=== PATIENT | female | born 1995 | race Caucasian/White ===

== ENCOUNTER 2017-05-10 19:33 | Emergency (ER) | payer SELFPAY, MEDICAID | END 2017-05-10 21:10 | disposition left against medical advice (07) | LOC: E/R 19:33 | DX: Z53.21 Procedure and treatment not carried out due to patient leaving prior to being seen by health care provider (principal) ==

== ENCOUNTER 2017-09-26 15:25 | Inpatient (IN) | payer MEDICAID ==
[2017-09-26 15:49] LABS: RUPTURE FETAL MEMBRANES POSITIVE (NEGATIVE)
[2017-09-26] MEDS ORDERED: CARBOPROST 250 MCG INJ IM (17:00)
[2017-09-26] MEDS ORDERED: LIDOCAINE 1% (MPF) 30 ML INJ INJ (17:00)
[2017-09-26] MEDS ORDERED: MISOPROSTOL 200 MCG TAB PR (17:00)
[2017-09-26] MEDS ORDERED: METHYLERGONOVINE 0.2 MG INJ IM (17:00)
[2017-09-26] MEDS ORDERED: OXYTOCIN 30 UNITS/LR 500 ML IV (17:00)
[2017-09-26] MEDS: LACTATED RINGER'S 1,000 ML IV* (17:31)
[2017-09-26] MEDS: AMPICILLIN 2 GM/NS (PMX) 100 ML IV (17:34)
[2017-09-26] MEDS: OXYTOCIN 30 UNITS/LR 500 ML IV ×3 (17:43→20:55)
[2017-09-26 17:48] LABS: ADD MAN DIFF? NO
[2017-09-26 17:50] LABS: WHITE BLOOD COUNT 12.9 10^3/ul (4.8-10.8)
[2017-09-26 17:50] LABS: BASOPHIL # 0.1 10^3/ul (0.0-0.1); BASOPHILS % 0.4 % (0.0-2.0); EOSINOPHILS # 0.1 10^3/ul (0.0-0.5); EOSINOPHILS % 0.5 % (0.0-7.0); HEMATOCRIT 32.9 % (37.0-47.0); HEMOGLOBIN 11.1 g/dl (12.0-16.0); LYMPHOCYTES # 2.4 10^3/ul (0.8-2.9); LYMPHOCYTES % 18.9 % (18.0-55.0); MEAN CORPUSCULAR HEMOGLOBIN 31.7 pg (29.0-33.0); MEAN CORPUSCULAR HGB CONC 33.7 g/dl (32.0-37.0); MONOCYTE # 1.2 10^3/ul (0.3-0.9); MONOCYTES % 9.2 % (0.0-13.0); PLATELET COUNT 218 10^3/UL (140-415); RED CELL DISTRIBUTION WIDTH 14.6 % (11.5-14.5)
[2017-09-26] MEDS ORDERED: ERYTHROMYCIN LACTOBIONATE 500 MG in SOD CHLORIDE 0.9% 100 ML IVPB (18:00)
[2017-09-26] MEDS ORDERED: ERYTHROMYCIN BASE (EC) 500 MG TAB PO (18:00)
[2017-09-26 18:08] LABS: INR 0.86; PARTIAL THROMBOPLASTIN TIME 23.6 Sec (25.0-35.0); PROTIME 11.8 Sec (11.9-14.9); PT RATIO 0.9
[2017-09-26] MEDS: BUTORPHANOL 2 MG INJ IV (19:02)
[2017-09-26] MEDS ORDERED: AMPICILLIN 1 GM/NS (PMX) 50 ML IV (21:00)
[2017-09-26] MEDS ORDERED: DIBUCAINE 1% 30 GM OINT PR (23:00)
[2017-09-26] MEDS ORDERED: HYDROCODONE/APAP (5/325) TAB PO ×2 (23:00)
[2017-09-26] MEDS ORDERED: WITCH HAZEL/GLYCERIN PAD PR (23:00)
[2017-09-26] MEDS ORDERED: ONDANSETRON 4 MG INJ IV (23:00)
[2017-09-26] MEDS ORDERED: BENZOCAINE 20% 56 ML SPRAY TOP (23:00)
[2017-09-26] MEDS ORDERED: OXYCODONE/ASPIRIN (4.88/325) TAB PO ×2 (23:00)
[2017-09-26] MEDS ORDERED: ACETAMINOPHEN 325 MG TAB PO (23:00)
[2017-09-26] MEDS: LANOLIN 7 GM TUBE TOP (23:48)
[2017-09-26] MEDS: IBUPROFEN 600 MG TAB PO (23:48)
[2017-09-27] MEDS: OXYTOCIN 30 UNITS/LR 500 ML IV (04:15)
[2017-09-27] MEDS: IBUPROFEN 600 MG TAB PO ×4 (05:33→23:46)
[2017-09-27 07:15] LABS: ADD MAN DIFF? NO
[2017-09-27 07:17] LABS: ABNORMAL IP MESSAGE 1; BASOPHIL # 0.1 10^3/ul (0.0-0.1); BASOPHILS % 0.3 % (0.0-2.0); EOSINOPHILS # 0.1 10^3/ul (0.0-0.5); EOSINOPHILS % 0.5 % (0.0-7.0); HEMOGLOBIN 10.7 g/dl (12.0-16.0); LYMPHOCYTES # 3.1 10^3/ul (0.8-2.9); LYMPHOCYTES % 17.2 % (18.0-55.0); MEAN CORPUSCULAR HEMOGLOBIN 30.8 pg (29.0-33.0); MEAN CORPUSCULAR HGB CONC 32.4 g/dl (32.0-37.0); MEAN CORPUSCULAR VOLUME 95.1 fl (72.0-104.0); MEAN PLATELET VOLUME 9.6 fl (7.4-10.4); MONOCYTE # 1.7 10^3/ul (0.3-0.9); MONOCYTES % 9.6 % (0.0-13.0); NEUTROPHIL # 12.7 10^3/ul (1.6-7.5); NEUTROPHILS % 71.7 % (30.0-74.0); PLATELET COUNT 185 10^3/UL (140-415); RED BLOOD COUNT 3.47 10^6/ul (4.20-5.40); RED CELL DISTRIBUTION WIDTH 14.4 % (11.5-14.5)
[2017-09-27 07:17] LABS: WHITE BLOOD COUNT 17.8 10^3/ul (4.8-10.8)
[2017-09-27 07:28] LABS: POSITIVE DIFF @See below
[2017-09-27 08:06] LABS: HEPATITIS B SURFACE ANTIGEN NEGATIVE (NEGATIVE)
[2017-09-27] MEDS: SENNA/DOCUSATE NA (8.6MG/50MG) TAB PO ×2 (09:06→20:54)
[2017-09-27 22:05] LABS: RAPID PLASMA REAGIN NONREACTIVE (NR)
[2017-09-28] MEDS: IBUPROFEN 600 MG TAB PO (05:36)
[2017-09-28] MEDS: SENNA/DOCUSATE NA (8.6MG/50MG) TAB PO (09:01)
[2017-09-28] MEDS: MEASLES,MUMPS,RUBELLA VACCINE INJ SC* (09:30)
== END 2017-09-28 13:04 | disposition home or self-care (01) | DRG 775 ==
LOC: OBT 15:25 → L-D 15:26 → OBT 16:16 → L-D 16:16 → PP1 22:50
PROVIDERS: Obstetrics & Gynecology
PROC: 10E0XZZ Delivery of Products of Conception, External Approach (ICD-10-PCS; principal; 2017-09-26)
PROC: 4A1HXCZ Monitoring of Products of Conception, Cardiac Rate, External Approach (ICD-10-PCS; 2017-09-26)
PROC: 3E0234Z Introduction of Serum, Toxoid and Vaccine into Muscle, Percutaneous Approach (ICD-10-PCS; 2017-09-28)
DX: O42.013 Preterm premature rupture of membranes, onset of labor within 24 hours of rupture, third trimester (principal); O69.81X0 Labor and delivery complicated by cord around neck, without compression, not applicable or unspecified; O70.0 First degree perineal laceration during delivery; Z3A.36 36 weeks gestation of pregnancy; Z37.0 Single live birth; Z23 Encounter for immunization
CPT/HCPCS: 76815; 76818; 84112; 85025; 85610; 85730; 86592; 86850; 86900; 86901; 87070; 87340; 88307